=== PATIENT | male | born 1940 | race Caucasian/White ===

== ENCOUNTER 2017-08-18 08:39 | Inpatient (IN) | payer OTHER ==
[~2017-08-18] VITALS: Ht 170.2 cm; Wt 110.0 kg
[2017-08-18 09:24] LABS: BASOPHIL % 0.5 % (0-2); PLATELET COUNT 203 x10^3mcL (130-400); RED CELL DISTRIBUTION WIDTH 13.4 % (11.5-14.5)
[2017-08-18 09:29] LABS: CARBON DIOXIDE 22.2 mmol/L (21-32); CHLORIDE SERUM 101 mmol/L (98-107); GLUCOSE SERUM 234 mg/dL (74-106); SODIUM SERUM 135 mmol/L (136-145)
[2017-08-18 09:33] LABS: ALBUMIN 3.6 g/dL (3.4-5.0); ALKALINE PHOSPHATASE 106 U/L (46-116); ALT/SGPT 29 U/L (16-63); AST/SGOT 24 U/L (15-37); BILIRUBIN TOTAL 1.14 mg/dL (0.20-1.00); CHOLESTEROL 183 mg/dL (<200); CHOLESTEROL/HDL RATIO 3.8; HDL CHOLESTEROL 48 mg/dL (40-60); TOTAL PROTEIN, SERUM 6.6 g/dL (6.4-8.2); TRIGLYCERIDES 106 mg/dL (<150)
[2017-08-18 09:37] LABS: T3 TOTAL 2.02 ng/mL
[2017-08-18 09:59] LABS: FREE T4 0.86 ng/dL (0.76-1.46); FREE THYROXINE INDEX 2.2 ug/dL (1.4-4.5); T4(THYROXINE) 7.2 ug/dL (4.7-13.3)
[2017-08-18 10:12] LABS: LIPASE 18624 IU/L (73-393)
[2017-08-18] MEDS ORDERED: LISINOPRIL10 MG PO (11:23)
[2017-08-18 12:06] VITALS: BP 119/67
[2017-08-18 12:20] LABS: MAGNESIUM 2.2 mg/dL (1.8-2.4); PHOSPHOROUS 3.3 mg/dL (2.5-4.9)
[2017-08-18 14:00] VITALS: BP 120/79; BP 130/72
[2017-08-18] MEDS ORDERED: ARMOUR THYROID30 MG PO (15:11)
[2017-08-18 16:15] VITALS: BP 128/75
[2017-08-18 17:47] LABS: microscopic required? YES; urine erythrocyte 1+ (NEGATIVE)
[2017-08-18 17:56] LABS: AMPHETAMINE QUAL UR NONE DETECTED (NEG <=1000)
[2017-08-18 21:10] VITALS: BP 146/86
[2017-08-19 06:19] VITALS: BP 120/80
[2017-08-19 06:42] LABS: PLATELET COUNT 190 x10^3mcL (130-400); RED CELL DISTRIBUTION WIDTH 13.6 % (11.5-14.5)
[2017-08-19 06:55] LABS: CALCIUM 7.5 mg/dL (8.5-10.1); CARBON DIOXIDE 18.6 mmol/L (21-32); CHLORIDE SERUM 102 mmol/L (98-107); CREATININE SERUM 2.8 mg/dL (0.7-1.3); GLUCOSE SERUM 362 mg/dL (74-106); SODIUM SERUM 134 mmol/L (136-145)
[2017-08-19 06:59] LABS: POTASSIUM SERUM 5.8 mmol/L (3.5-5.1)
[2017-08-19 09:32] VITALS: BP 121/71
[2017-08-19 11:15] LABS: BAND NEUTROPHIL 9 % (0-10); BASOPHIL 0 % (0-2); MONOCYTE 3 % (0-7); SEGMENTED NEUTROPHILS 88 % (37-75)
[2017-08-19 11:16] LABS: PLATELET MORPHOLOGY PLATELETS DECREASED; rbc morphology (normal/abnorm) ABNORMAL (NORMAL)
[2017-08-19 12:59] VITALS: BP 119/52
[2017-08-19 17:26] VITALS: BP 124/78
[2017-08-19 17:31] LABS: CALCIUM 7.2 mg/dL (8.5-10.1); CARBON DIOXIDE 23.1 mmol/L (21-32); CHLORIDE SERUM 102 mmol/L (98-107); GLUCOSE SERUM 205 mg/dL (74-106); POTASSIUM SERUM 5.1 mmol/L (3.5-5.1); SODIUM SERUM 130 mmol/L (136-145)
[2017-08-19 17:40] LABS: CREATININE SERUM 4.1 mg/dL (0.7-1.3)
[2017-08-19 21:32] VITALS: BP 103/70
[2017-08-20] VITALS (12 sets, daily range): BP systolic 66–128; BP diastolic 39–101
[2017-08-20 06:35] LABS: CALCIUM 6.6 mg/dL (8.5-10.1); CARBON DIOXIDE 20.5 mmol/L (21-32); CHLORIDE SERUM 102 mmol/L (98-107); GLUCOSE SERUM 162 mg/dL (74-106); MAGNESIUM 1.9 mg/dL (1.8-2.4); POTASSIUM SERUM 4.6 mmol/L (3.5-5.1); SODIUM SERUM 137 mmol/L (136-145)
[2017-08-20 06:39] LABS: CREATININE SERUM 5.6 mg/dL (0.7-1.3)
[2017-08-20 07:10] LABS: PLATELET COUNT 110 x10^3mcL (130-400); RED CELL DISTRIBUTION WIDTH 14.6 % (11.5-14.5)
[2017-08-20 09:32] LABS: BAND NEUTROPHIL 32 % (0-10); BASOPHIL 0 % (0-2); MONOCYTE 2 % (0-7); SEGMENTED NEUTROPHILS 56 % (37-75)
[2017-08-20 09:39] LABS: burr cell (echinocyte) 1+; rbc morphology (normal/abnorm) ABNORMAL (NORMAL)
[2017-08-20 11:14] LABS: LIPASE 12406 IU/L (73-393)
[2017-08-20 11:40] LABS: AMYLASE 1499 U/L (25-115)
[2017-08-20 15:27] LABS: PLATELET COUNT 110 x10^3mcL (130-400)
[2017-08-20 16:08] LABS: BAND NEUTROPHIL 8 % (0-10); METAMYELOCTE 1 % (0-2); MONOCYTE 6 % (0-7); SEGMENTED NEUTROPHILS 78 % (37-75); rbc morphology (normal/abnorm) NORMAL (NORMAL)
[2017-08-20 21:47] LABS: CARBON DIOXIDE 18.5 mmol/L (21-32); CHLORIDE SERUM 105 mmol/L (98-107); GLUCOSE SERUM 181 mg/dL (74-106); POTASSIUM SERUM 4.4 mmol/L (3.5-5.1); SODIUM SERUM 136 mmol/L (136-145)
[2017-08-20 21:49] LABS: CREATININE SERUM 6.3 mg/dL (0.7-1.3)
[2017-08-20 21:50] LABS: CALCIUM 5.7 mg/dL (8.5-10.1)
[2017-08-21] VITALS (17 sets, daily range): BP systolic 80–125; BP diastolic 45–73
[2017-08-21 05:55] LABS: PLATELET COUNT 141 x10^3mcL (130-400)
[2017-08-21 06:11] LABS: CALCIUM 6.2 mg/dL (8.5-10.1); CARBON DIOXIDE 16.3 mmol/L (21-32); CHLORIDE SERUM 103 mmol/L (98-107); GLUCOSE SERUM 239 mg/dL (74-106); PHOSPHOROUS 6.8 mg/dL (2.5-4.9); POTASSIUM SERUM 4.6 mmol/L (3.5-5.1); SODIUM SERUM 137 mmol/L (136-145)
[2017-08-21 06:23] LABS: CREATININE SERUM 7.4 mg/dL (0.7-1.3)
[2017-08-21 11:31] LABS: BAND NEUTROPHIL 10 % (0-10); BASOPHIL 0 % (0-2); METAMYELOCTE 1 % (0-2); MONOCYTE 8 % (0-7); SEGMENTED NEUTROPHILS 74 % (37-75)
[2017-08-21 11:32] LABS: rbc morphology (normal/abnorm) ABNORMAL (NORMAL)
[2017-08-21 11:33] LABS: burr cell (echinocyte) 1+
[2017-08-21 13:06] LABS: BILIRUBIN DIRECT 0.74 mg/dL (0.0-0.2); BILIRUBIN TOTAL 1.2 mg/dL (0.20-1.00)
[2017-08-21 13:07] LABS: ALBUMIN 2.3 g/dL (3.4-5.0); TOTAL PROTEIN, SERUM 4.7 g/dL (6.4-8.2)
[2017-08-21 21:15] LABS: CALCIUM 6.7 mg/dL (8.5-10.1); CARBON DIOXIDE 16.4 mmol/L (21-32); CHLORIDE SERUM 101 mmol/L (98-107); GLUCOSE SERUM 332 mg/dL (74-106); POTASSIUM SERUM 4.2 mmol/L (3.5-5.1); SODIUM SERUM 135 mmol/L (136-145)
[2017-08-21 21:26] LABS: CREATININE SERUM 8.3 mg/dL (0.7-1.3)
[2017-08-22] VITALS (18 sets, daily range): BP systolic 92–121; BP diastolic 51–66
[2017-08-22 05:18] LABS: BASOPHIL % 0.1 % (0-2); RED CELL DISTRIBUTION WIDTH 13.8 % (11.5-14.5)
[2017-08-22 05:19] LABS: PLATELET COUNT 95 x10^3mcL (130-400)
[2017-08-22 05:28] LABS: CALCIUM 6.6 mg/dL (8.5-10.1); CARBON DIOXIDE 16.6 mmol/L (21-32); CHLORIDE SERUM 101 mmol/L (98-107); GLUCOSE SERUM 377 mg/dL (74-106); MAGNESIUM 2.1 mg/dL (1.8-2.4); POTASSIUM SERUM 4.2 mmol/L (3.5-5.1); SODIUM SERUM 134 mmol/L (136-145)
[2017-08-22 05:46] LABS: CREATININE SERUM 8.5 mg/dL (0.7-1.3)
[2017-08-22 07:29] LABS: LIPASE 862 IU/L (73-393)
[2017-08-22 07:46] LABS: AMYLASE 196 U/L (25-115)
[2017-08-23] VITALS (17 sets, daily range): BP systolic 92–121; BP diastolic 45–69
[2017-08-23 05:28] LABS: RED CELL DISTRIBUTION WIDTH 13.9 % (11.5-14.5)
[2017-08-23 05:38] LABS: BASOPHIL % 0 % (0-2); PLATELET COUNT 105 x10^3mcL (130-400)
[2017-08-23 05:40] LABS: CALCIUM 6.1 mg/dL (8.5-10.1); CARBON DIOXIDE 16.7 mmol/L (21-32); CHLORIDE SERUM 100 mmol/L (98-107); GLUCOSE SERUM 228 mg/dL (74-106); MAGNESIUM 1.9 mg/dL (1.8-2.4); PHOSPHOROUS 7.1 mg/dL (2.5-4.9); POTASSIUM SERUM 3.5 mmol/L (3.5-5.1); SODIUM SERUM 137 mmol/L (136-145)
[2017-08-23 05:49] LABS: CREATININE SERUM 10.2 mg/dL (0.7-1.3)
[2017-08-23 21:27] LABS: CALCIUM 6.2 mg/dL (8.5-10.1); CARBON DIOXIDE 21.2 mmol/L (21-32); CHLORIDE SERUM 102 mmol/L (98-107); GLUCOSE SERUM 305 mg/dL (74-106); POTASSIUM SERUM 3.3 mmol/L (3.5-5.1); SODIUM SERUM 135 mmol/L (136-145)
[2017-08-23 21:29] LABS: CREATININE SERUM 8.1 mg/dL (0.7-1.3)
[2017-08-24] VITALS (17 sets, daily range): BP systolic 85–126; BP diastolic 43–70
[2017-08-24 05:18] LABS: RED CELL DISTRIBUTION WIDTH 13.9 % (11.5-14.5)
[2017-08-24 05:22] LABS: BASOPHIL % 0 % (0-2); PLATELET COUNT 101 x10^3mcL (130-400)
[2017-08-24 05:34] LABS: CALCIUM 6.1 mg/dL (8.5-10.1); CARBON DIOXIDE 22.4 mmol/L (21-32); CHLORIDE SERUM 100 mmol/L (98-107); GLUCOSE SERUM 425 mg/dL (74-106); MAGNESIUM 1.8 mg/dL (1.8-2.4); PHOSPHOROUS 5.6 mg/dL (2.5-4.9); POTASSIUM SERUM 3.5 mmol/L (3.5-5.1); SODIUM SERUM 138 mmol/L (136-145)
[2017-08-24 05:40] LABS: CREATININE SERUM 9.2 mg/dL (0.7-1.3)
[2017-08-24 18:28] LABS: BASOPHIL % 0.3 % (0-2); RED CELL DISTRIBUTION WIDTH 14.3 % (11.5-14.5)
[2017-08-24 18:30] LABS: PLATELET COUNT 114 x10^3mcL (130-400)
[2017-08-24 18:42] LABS: ALKALINE PHOSPHATASE 91 U/L (46-116); ALT/SGPT 30 U/L (16-63); AST/SGOT 38 U/L (15-37); BILIRUBIN TOTAL 0.96 mg/dL (0.20-1.00); CALCIUM 6.3 mg/dL (8.5-10.1); CARBON DIOXIDE 22.8 mmol/L (21-32); CHLORIDE SERUM 100 mmol/L (98-107); GLUCOSE SERUM 337 mg/dL (74-106); POTASSIUM SERUM 3.6 mmol/L (3.5-5.1); SODIUM SERUM 136 mmol/L (136-145)
[2017-08-24 18:48] LABS: ALBUMIN 1.6 g/dL (3.4-5.0); TOTAL PROTEIN, SERUM 4.6 g/dL (6.4-8.2)
[2017-08-24 18:49] LABS: CREATININE SERUM 9.3 mg/dL (0.7-1.3)
[2017-08-24 19:31] LABS: MAGNESIUM 2.4 mg/dL (1.8-2.4); PHOSPHOROUS 5.2 mg/dL (2.5-4.9)
[2017-08-25] VITALS (19 sets, daily range): BP systolic 87–153; BP diastolic 41–96
[2017-08-25 05:17] LABS: PLATELET COUNT 131 x10^3mcL (130-400)
[2017-08-25 05:20] LABS: CALCIUM 6.5 mg/dL (8.5-10.1); CARBON DIOXIDE 20.5 mmol/L (21-32); CHLORIDE SERUM 102 mmol/L (98-107); GLUCOSE SERUM 250 mg/dL (74-106); MAGNESIUM 2.1 mg/dL (1.8-2.4); PHOSPHOROUS 5.9 mg/dL (2.5-4.9); POTASSIUM SERUM 3.8 mmol/L (3.5-5.1); SODIUM SERUM 139 mmol/L (136-145)
[2017-08-25 05:21] LABS: BASOPHIL % 0 % (0-2)
[2017-08-25 05:25] LABS: CREATININE SERUM 9.9 mg/dL (0.7-1.3)
[2017-08-25 15:28] LABS: CALCIUM IONIZED 3.2 mg/dL (4.5-5.6)
[2017-08-26] VITALS (17 sets, daily range): BP systolic 11–124; BP diastolic 42–59
[2017-08-26 05:23] LABS: PLATELET COUNT 199 x10^3mcL (130-400); RED CELL DISTRIBUTION WIDTH 14.1 % (11.5-14.5)
[2017-08-26 05:35] LABS: CALCIUM 6.7 mg/dL (8.5-10.1); CHLORIDE SERUM 100 mmol/L (98-107); GLUCOSE SERUM 365 mg/dL (74-106); MAGNESIUM 2.3 mg/dL (1.8-2.4); PHOSPHOROUS 7.3 mg/dL (2.5-4.9); POTASSIUM SERUM 4.3 mmol/L (3.5-5.1); SODIUM SERUM 136 mmol/L (136-145)
[2017-08-26 05:42] LABS: BAND NEUTROPHIL 4 % (0-10); MONOCYTE 10 % (0-7); SEGMENTED NEUTROPHILS 63 % (37-75)
[2017-08-26 05:45] LABS: PLATELET MORPHOLOGY LARGE PLATELET SEEN; rbc morphology (normal/abnorm) NORMAL (NORMAL)
[2017-08-27] VITALS (18 sets, daily range): BP systolic 89–152; BP diastolic 41–96
[2017-08-27 05:33] LABS: PLATELET COUNT 186 x10^3mcL (130-400)
[2017-08-27 05:34] LABS: CALCIUM 7.1 mg/dL (8.5-10.1); CHLORIDE SERUM 100 mmol/L (98-107); GLUCOSE SERUM 344 mg/dL (74-106); MAGNESIUM 2.1 mg/dL (1.8-2.4); PHOSPHOROUS 7.4 mg/dL (2.5-4.9); SODIUM SERUM 135 mmol/L (136-145)
[2017-08-27 05:37] LABS: CREATININE SERUM 9.9 mg/dL (0.7-1.3)
[2017-08-27 05:40] LABS: BASOPHIL % 0 % (0-2)
[2017-08-28] VITALS (17 sets, daily range): BP systolic 91–130; BP diastolic 44–68; Ht 170.2 cm; Wt 110.0 kg
[2017-08-28 05:41] LABS: PLATELET COUNT 241 x10^3mcL (130-400); RED CELL DISTRIBUTION WIDTH 14.1 % (11.5-14.5)
[2017-08-28 05:57] LABS: BAND NEUTROPHIL 4 % (0-10); METAMYELOCTE 1 % (0-2); MONOCYTE 6 % (0-7); SEGMENTED NEUTROPHILS 86 % (37-75)
[2017-08-28 05:58] LABS: PLATELET MORPHOLOGY LARGE PLATELET SEEN; rbc morphology (normal/abnorm) ABNORMAL (NORMAL)
[2017-08-28 06:40] LABS: CALCIUM 7.2 mg/dL (8.5-10.1); CARBON DIOXIDE 16.9 mmol/L (21-32); CHLORIDE SERUM 98 mmol/L (98-107); GLUCOSE SERUM 353 mg/dL (74-106); MAGNESIUM 2.3 mg/dL (1.8-2.4); PHOSPHOROUS 7.9 mg/dL (2.5-4.9); POTASSIUM SERUM 3.9 mmol/L (3.5-5.1); SODIUM SERUM 136 mmol/L (136-145)
[2017-08-28 06:43] LABS: CREATININE SERUM 9.8 mg/dL (0.7-1.3)
[2017-08-28 13:24] LABS: CALCIUM 7.1 mg/dL (8.5-10.1); CARBON DIOXIDE 25.5 mmol/L (21-32); CHLORIDE SERUM 101 mmol/L (98-107); GLUCOSE SERUM 202 mg/dL (74-106); MAGNESIUM 1.8 mg/dL (1.8-2.4); PHOSPHOROUS 4.8 mg/dL (2.5-4.9); POTASSIUM SERUM 3.2 mmol/L (3.5-5.1); SODIUM SERUM 138 mmol/L (136-145)
[2017-08-28 17:14] LABS: CALCIUM 6.8 mg/dL (8.5-10.1); CARBON DIOXIDE 24.7 mmol/L (21-32); CHLORIDE SERUM 103 mmol/L (98-107); GLUCOSE SERUM 119 mg/dL (74-106); MAGNESIUM 1.9 mg/dL (1.8-2.4); PHOSPHOROUS 5.3 mg/dL (2.5-4.9); POTASSIUM SERUM 3.4 mmol/L (3.5-5.1); SODIUM SERUM 142 mmol/L (136-145)
[2017-08-28 17:17] LABS: CREATININE SERUM 7.7 mg/dL (0.7-1.3)
[2017-08-28 20:32] LABS: CALCIUM 6.9 mg/dL (8.5-10.1); CARBON DIOXIDE 25.5 mmol/L (21-32); CHLORIDE SERUM 101 mmol/L (98-107); GLUCOSE SERUM 158 mg/dL (74-106); PHOSPHOROUS 5.8 mg/dL (2.5-4.9); POTASSIUM SERUM 3.5 mmol/L (3.5-5.1); SODIUM SERUM 141 mmol/L (136-145)
[2017-08-29] VITALS (14 sets, daily range): BP systolic 88–138; BP diastolic 44–86
[2017-08-29 00:23] LABS: CALCIUM 6.7 mg/dL (8.5-10.1); CARBON DIOXIDE 23.1 mmol/L (21-32); CHLORIDE SERUM 101 mmol/L (98-107); GLUCOSE SERUM 205 mg/dL (74-106); MAGNESIUM 1.9 mg/dL (1.8-2.4); PHOSPHOROUS 6.2 mg/dL (2.5-4.9); POTASSIUM SERUM 3.4 mmol/L (3.5-5.1); SODIUM SERUM 140 mmol/L (136-145)
[2017-08-29 00:25] LABS: CREATININE SERUM 8.6 mg/dL (0.7-1.3)
[2017-08-29 05:26] LABS: PLATELET COUNT 241 x10^3mcL (130-400)
[2017-08-29 05:46] LABS: CALCIUM 7.1 mg/dL (8.5-10.1); CARBON DIOXIDE 21.3 mmol/L (21-32); CHLORIDE SERUM 101 mmol/L (98-107); GLUCOSE SERUM 131 mg/dL (74-106); MAGNESIUM 2.2 mg/dL (1.8-2.4); PHOSPHOROUS 6.4 mg/dL (2.5-4.9); POTASSIUM SERUM 3.3 mmol/L (3.5-5.1); SODIUM SERUM 137 mmol/L (136-145)
[2017-08-29 05:50] LABS: CREATININE SERUM 8.6 mg/dL (0.7-1.3)
[2017-08-29 05:53] LABS: BASOPHIL % 0 % (0-2); RED CELL DISTRIBUTION WIDTH 14.6 % (11.5-14.5)
[2017-08-29 09:01] LABS: CARBON DIOXIDE 21.9 mmol/L (21-32); CHLORIDE SERUM 101 mmol/L (98-107); GLUCOSE SERUM 64 mg/dL (74-106); MAGNESIUM 2.2 mg/dL (1.8-2.4); PHOSPHOROUS 6.8 mg/dL (2.5-4.9); POTASSIUM SERUM 3.3 mmol/L (3.5-5.1); SODIUM SERUM 139 mmol/L (136-145)
[2017-08-29 09:24] LABS: CREATININE SERUM 8.7 mg/dL (0.7-1.3)
[2017-08-29 12:46] LABS: CALCIUM 7.6 mg/dL (8.5-10.1); CARBON DIOXIDE 30.1 mmol/L (21-32); CHLORIDE SERUM 101 mmol/L (98-107); CREATININE SERUM 3.7 mg/dL (0.7-1.3); GLUCOSE SERUM 150 mg/dL (74-106); MAGNESIUM 1.7 mg/dL (1.8-2.4); PHOSPHOROUS 2.9 mg/dL (2.5-4.9); SODIUM SERUM 141 mmol/L (136-145)
[2017-08-29 12:48] LABS: POTASSIUM SERUM 1.9 mmol/L (3.5-5.1)
[2017-08-29 16:27] LABS: CALCIUM 6.5 mg/dL (8.5-10.1); CARBON DIOXIDE 24.8 mmol/L (21-32); CHLORIDE SERUM 104 mmol/L (98-107); GLUCOSE SERUM 124 mg/dL (74-106); MAGNESIUM 1.8 mg/dL (1.8-2.4); PHOSPHOROUS 5.5 mg/dL (2.5-4.9); POTASSIUM SERUM 3.7 mmol/L (3.5-5.1); SODIUM SERUM 140 mmol/L (136-145)
[2017-08-29 16:33] LABS: CREATININE SERUM 6.5 mg/dL (0.7-1.3)
[2017-08-30] VITALS (19 sets, daily range): BP systolic 91–125; BP diastolic 40–56
[2017-08-30 05:39] LABS: BASOPHIL % 0 % (0-2); PLATELET COUNT 265 x10^3mcL (130-400); RED CELL DISTRIBUTION WIDTH 14.4 % (11.5-14.5)
[2017-08-30 05:41] LABS: MAGNESIUM 2.1 mg/dL (1.8-2.4); PHOSPHOROUS 7.6 mg/dL (2.5-4.9)
[2017-08-30 06:40] LABS: CALCIUM 6.9 mg/dL (8.5-10.1); CARBON DIOXIDE 20.7 mmol/L (21-32); CHLORIDE SERUM 101 mmol/L (98-107); GLUCOSE SERUM 222 mg/dL (74-106); POTASSIUM SERUM 3.6 mmol/L (3.5-5.1); SODIUM SERUM 138 mmol/L (136-145)
[2017-08-30 06:47] LABS: CREATININE SERUM 7.9 mg/dL (0.7-1.3)
[2017-08-30 09:58] LABS: BILIRUBIN DIRECT 0.66 mg/dL (0.0-0.2)
[2017-08-30 09:59] LABS: ALBUMIN 1.6 g/dL (3.4-5.0)
[2017-08-30 10:01] LABS: IRON 11 ug/dL (65-170); TOTAL IRON BINDING CAPACITY 116 ug/dL (250-450)
[2017-08-30 10:27] LABS: FREE T4 0.26 ng/dL (0.76-1.46)
[2017-08-30 10:28] LABS: FREE THYROXINE INDEX 1.4 ug/dL (1.4-4.5); T4(THYROXINE) 3.9 ug/dL (4.7-13.3)
[2017-08-30 10:45] LABS: T3 TOTAL < 15 ng/mL
[2017-08-30 11:43] LABS: RED BLOOD CELLS 2.92 M/mm3 (4.52-5.90)
[2017-08-31] VITALS (18 sets, daily range): BP systolic 84–155; BP diastolic 45–69
[2017-08-31 05:28] LABS: BASOPHIL % 0.7 % (0-2); PLATELET COUNT 197 x10^3mcL (130-400); RED CELL DISTRIBUTION WIDTH 14.2 % (11.5-14.5)
[2017-08-31 05:35] LABS: CALCIUM 7.3 mg/dL (8.5-10.1); CARBON DIOXIDE 17.8 mmol/L (21-32); CHLORIDE SERUM 100 mmol/L (98-107); GLUCOSE SERUM 193 mg/dL (74-106); MAGNESIUM 2.2 mg/dL (1.8-2.4); POTASSIUM SERUM 3.7 mmol/L (3.5-5.1); SODIUM SERUM 136 mmol/L (136-145)
[2017-08-31 05:38] LABS: ALBUMIN 1.6 g/dL (3.4-5.0)
[2017-08-31 05:49] LABS: CREATININE SERUM 8.9 mg/dL (0.7-1.3)
[2017-09-01] VITALS (18 sets, daily range): BP systolic 105–161; BP diastolic 54–83
[2017-09-01 05:55] LABS: CHLORIDE SERUM 103 mmol/L (98-107); GLUCOSE SERUM 257 mg/dL (74-106); POTASSIUM SERUM 3.6 mmol/L (3.5-5.1); SODIUM SERUM 142 mmol/L (136-145)
[2017-09-01 05:56] LABS: BASOPHIL % 0.1 % (0-2); PLATELET COUNT 238 x10^3mcL (130-400); RED CELL DISTRIBUTION WIDTH 14.2 % (11.5-14.5)
[2017-09-01 05:59] LABS: CREATININE SERUM 8.2 mg/dL (0.7-1.3); PHOSPHOROUS 9.8 mg/dL (2.5-4.9)
[2017-09-01] MEDS ORDERED: MER500I IV (16:59)
[2017-09-01] MEDS ORDERED: COR200 PO (17:01)
[2017-09-01] MEDS ORDERED: [UNRECOGNIZED DRUG - CODE] IV (17:01)
[2017-09-01] MEDS ORDERED: LEVEMIR100 U/M1 SC (17:01)
[2017-09-01] MEDS ORDERED: REG10I IV (17:03)
[2017-09-01] MEDS ORDERED: HUMULIN R100 U/1 M1 SC (17:04)
[2017-09-01] MEDS ORDERED: XOP1.25 HHN (17:04)
[2017-09-01] MEDS ORDERED: VANCOMYCIN PER PHARM MC (17:05)
[2017-09-01] MEDS ORDERED: PHOS PO (17:05)
[2017-09-01] MEDS ORDERED: PROA PO (17:06)
[2017-09-01] MEDS ORDERED: HEP5I SC (17:06)
[2017-09-01] MEDS ORDERED: PROT40I IV (17:07)
[2017-09-01] MEDS ORDERED: HCTZ/LISINOPRIL1 TAB PO (17:36)
[2017-09-01] MEDS ORDERED: HYDROCHLOROTH12.5 M2 PO (17:36)
[2017-09-02 00:06] VITALS: BP 139/70
[2017-09-02 02:05] VITALS: BP 102/50
[2017-09-02 03:22] VITALS: BP 118/63
[2017-09-02 04:30] VITALS: BP 116/55
[2017-09-02 05:20] LABS: BASOPHIL % 0.2 % (0-2); PLATELET COUNT 227 x10^3mcL (130-400); RED CELL DISTRIBUTION WIDTH 14.2 % (11.5-14.5)
[2017-09-02 05:37] LABS: CALCIUM 6.8 mg/dL (8.5-10.1); CARBON DIOXIDE 17.2 mmol/L (21-32); CHLORIDE SERUM 102 mmol/L (98-107); GLUCOSE SERUM 263 mg/dL (74-106); MAGNESIUM 2.6 mg/dL (1.8-2.4); POTASSIUM SERUM 4.1 mmol/L (3.5-5.1); SODIUM SERUM 140 mmol/L (136-145)
[2017-09-02 05:40] LABS: CREATININE SERUM 9.3 mg/dL (0.7-1.3); PHOSPHOROUS 11.7 mg/dL (2.5-4.9)
[2017-09-02 06:04] VITALS: BP 133/63
== END 2017-09-02 07:30 | disposition short-term general hospital (02) | DRG 870 ==
LOC: ED 08:39 → DU 10:45 → IC 10:45 → DU 11:59 → IC 08-20 16:24
PROVIDERS: Family Medicine; Family Medicine Sports Medicine; Internal Medicine; Internal Medicine Gastroenterology; Specialist
PROC: 5A1955Z Respiratory Ventilation, Greater than 96 Consecutive Hours (ICD-10-PCS; principal; 2017-08-20)
PROC: 0BH17EZ Insertion of Endotracheal Airway into Trachea, Via Natural or Artificial Opening (ICD-10-PCS; 2017-08-20)
PROC: 02HV33Z Insertion of Infusion Device into Superior Vena Cava, Percutaneous Approach (ICD-10-PCS; 2017-08-21)
PROC: B548ZZA Ultrasonography of Superior Vena Cava, Guidance (ICD-10-PCS; 2017-08-21)
PROC: 0DHA7UZ Insertion of Feeding Device into Jejunum, Via Natural or Artificial Opening (ICD-10-PCS; 2017-08-22)
PROC: 02HV33Z Insertion of Infusion Device into Superior Vena Cava, Percutaneous Approach (ICD-10-PCS; 2017-08-23)
PROC: B548ZZA Ultrasonography of Superior Vena Cava, Guidance (ICD-10-PCS; 2017-08-23)
PROC: 05HY33Z Insertion of Infusion Device into Upper Vein, Percutaneous Approach (ICD-10-PCS; 2017-08-24)
PROC: 05HY33Z Insertion of Infusion Device into Upper Vein, Percutaneous Approach (ICD-10-PCS; 2017-08-26)
DX: A41.9 Sepsis, unspecified organism (principal); K85.90 Acute pancreatitis without necrosis or infection, unspecified; N17.0 Acute kidney failure with tubular necrosis; R65.21 Severe sepsis with septic shock; J96.01 Acute respiratory failure with hypoxia; E43 Unspecified severe protein-calorie malnutrition; K57.31 Diverticulosis of large intestine without perforation or abscess with bleeding; I46.9 Cardiac arrest, cause unspecified; J69.0 Pneumonitis due to inhalation of food and vomit; G93.41 Metabolic encephalopathy; K86.3 Pseudocyst of pancreas; R18.8 Other ascites; E27.40 Unspecified adrenocortical insufficiency; J90 Pleural effusion, not elsewhere classified; K57.30 Diverticulosis of large intestine without perforation or abscess without bleeding; E87.6 Hypokalemia; E83.51 Hypocalcemia; E02 Subclinical iodine-deficiency hypothyroidism; E11.65 Type 2 diabetes mellitus with hyperglycemia; E80.6 Other disorders of bilirubin metabolism; K20.9 Esophagitis, unspecified; I12.9 Hypertensive chronic kidney disease with stage 1 through stage 4 chronic kidney disease, or unspecified chronic kidney disease; E11.22 Type 2 diabetes mellitus with diabetic chronic kidney disease; N18.9 Chronic kidney disease, unspecified; D64.9 Anemia, unspecified; I48.0 Paroxysmal atrial fibrillation; J44.9 Chronic obstructive pulmonary disease, unspecified; H74.90 Unspecified disorder of middle ear and mastoid, unspecified ear
CPT/HCPCS: 36556; 36600; 43235; 78598; 82962; 83880; 84439; 87046; 87046-59; A4628; A4719; A9540; C9113; J0282; J0610; J0780; J1160; J1200; J1610; J1642; J1644; J1720; J1815; J1940; J1956; J2060; J2185; J2250; J2270; J2310; J2370; J2405; J2543; J2704; J2765; J2997; J3010; J3370; J3475; J3480; J3490; J7030; J7040; J7050; J7060; P9047; Q0092; Q9967